=== PATIENT | male | born 1990 | race Hispanic/Latino ===

== ENCOUNTER 2017-10-29 13:27 | Emergency (ER) | payer SELFPAY ==
[2017-10-29] MEDS ORDERED: Acetaminophen 500 MG TAB ONE (13:38)
== END 2017-10-29 14:43 | disposition home or self-care (01) ==
LOC: NAV ERS 13:27
DX: J11.1 Influenza due to unidentified influenza virus with other respiratory manifestations (principal); I10 Essential (primary) hypertension; F17.210 Nicotine dependence, cigarettes, uncomplicated
CPT/HCPCS: 99283

== ENCOUNTER 2019-03-17 15:58 | Emergency (ER) | payer SELFPAY | END 2019-03-17 16:45 | disposition home or self-care (01) | LOC: NAV ERS 15:58 | DX: R05 Cough (principal); R09.81 Nasal congestion; F17.210 Nicotine dependence, cigarettes, uncomplicated | CPT/HCPCS: 99281 ==

== ENCOUNTER 2020-01-20 10:53 | Emergency (ER) | payer SELFPAY | END 2020-01-20 11:12 | disposition home or self-care (01) | LOC: NAV ERS 10:53 | DX: J02.9 Acute pharyngitis, unspecified (principal); F17.210 Nicotine dependence, cigarettes, uncomplicated | CPT/HCPCS: 99282 ==

== ENCOUNTER 2023-09-14 07:55 | Emergency (ER) | payer OTHER, SELFPAY ==
[2023-09-14] MEDS ORDERED: Ibuprofen 200 MG TAB ONE (08:33)
== END 2023-09-14 08:35 | disposition home or self-care (01) ==
LOC: NAV ERS 07:55
DX: M54.50 Low back pain, unspecified (principal); G89.29 Other chronic pain; I10 Essential (primary) hypertension; F17.210 Nicotine dependence, cigarettes, uncomplicated; Z79.899 Other long term (current) drug therapy
CPT/HCPCS: 99283